=== PATIENT | male | born 1980 | race African-American/Black ===

== ENCOUNTER 2017-11-10 20:33 | Emergency (ER) | payer OTHER ==
[~2017-11-10] VITALS: Ht 157.5 cm; Wt 56.7 kg
--- NOTE | 2017-11-10 21:57 | ED AMS/SEIZURE/WEAK/DIZZY ---
History of Present Illness General Chief Complaint: ETOH/Drug Related Complaint Stated Complaint: BIBA FOUND UNRESPONSIVE Source: patient, EMS Exam Limitations: intoxication Vital Signs & Intake/Output Vital Signs & Intake/Output Vital Signs Date Time Temp Pulse Resp B/P B/P Pulse O2 O2 Flow FiO2 Mean Ox Delivery Rate 11/10 2209 98.6 86 18 110/60 97 Room Air 11/11 2039 98.5 85 18 103/57 95 Room Air Allergies Coded Allergies: No Known Drug Allergies (NKDA 11/10/17) Triage Note: PT BIBA FROM STREET AFTER BEING FOUND SLEEPING ON THE SIDE OF THE ROAD. PT ADMITED TO SMOKING MARIJUANA/K2. PT ARRIVES ALERT, ARGUMENTATIVE. PT WANDED BY SECURITY ON ARRIVAL. Triage Nurses Notes Reviewed? yes HPI: Patient presents for evaluation of passing out on the side of the street. Patient admits to heavy alcohol and marijuana use this evening. Past History Travel History Traveled to [place] past 21 day No Medical History Any Pertinent Medical History? see below for history Surgical History Surgical History: non-contributory Psychosocial History What is your primary language Yoruba Tobacco Use: Current Daily Use Daily Tobacco Use Amount/Type: => 5 Cigarettes daily ETOH Use: denies use Illicit Drug Use: marijuana Family History Hx Contributory? No Review of Systems Review of Systems Constitutional: Reports: no symptoms. EENTM: Reports: no symptoms. Respiratory: Reports: no symptoms. Cardiovascular: Reports: no symptoms. GI: Reports: no symptoms. Genitourinary: Reports: no symptoms. Musculoskeletal: Reports: no symptoms. Skin: Reports: no symptoms. Neurological/Psychological: Reports: no symptoms. Hematologic/Endocrine: Reports: no symptoms. Immunologic/Allergic: Reports: no symptoms. All Other Systems: Reviewed and Negative Physical Exam Physical Exam General Appearance: see below Comments: General: Alert, calm, cooperative, EtOH-like odor Head: Normocephalic, atraumatic Eyes: Normal inspection, no nystagmus, EOMI Ears: Normal inspection Nose: Normal inspection Throat: Moist mucosa Neck: Supple, no goiter Heart: Regular rate and rhythm, no murmurs rubs or gallops Lungs: Clear to auscultation bilaterally with good air entry Abdomen: Soft nontender nondistended, normal bowel sounds Chest: Nontender Extremities: Normal range of motion grossly, no tremors present, no cyanosis clubbing or edema of the upper extremities Neurologic: cranial nerves II through XII grossly intact, speech clear, gait normal Psychiatric: No apparent delusions or hallucinations, no pressured speech or thought blocking Core Measures ACS in differential dx? No CVA/TIA Diagnosis No Sepsis Present: No Sepsis Focused Exam Completed? No Progress Differential Diagnosis: alcohol intoxication, drug intoxication, heat exhaustion , dehydration Plan of Care: Ween alcohol, avoid drug use, PCP follow-up Initial ED EKG: none Comments: Patient's close friend and his friends mother are here in the emergency department and are willing to take Fan to their home and watch him overnight while he lyric up. Fan is in agreement with this. Departure Departure Disposition: HOME OR SELF CARE Condition: Stable Clinical Impression Primary Impression: Alcohol intoxication Qualifiers: Complication of substance-induced condition: uncomplicated Qualified Code: F10.920 - Alcohol use, unspecified with intoxication, uncomplicated Additional Instructions: Cut down on your alcohol intake. Maintained a good fluid intake. Avoid drugs. Follow-up with your primary care physician this week for reevaluation. Return if any concerns or sudden worsening. If you do not currently have a primary care physician then please contact the [facility] practice at the following phone number: . Departure Forms: Customer Survey General Discharge Information
[2017-11-10 22:10] VITALS: BP 110/60
== END 2017-11-10 22:13 ==
LOC: ERH 20:33
DX: F10.129 Alcohol abuse with intoxication, unspecified (principal)